=== PATIENT | female | born 1980 ===

== ENCOUNTER 2018-02-28 06:11 | Day surgery (SDC) | payer BC ==
[~2018-02-28 06:11] MED LIST: Buffered Lidocaine 0.9% SYRIN* 5 ML/SYR SYRINGE INTRADERM ONE; Dexamethasone IV* 4 MG/ML 1 ML (4 MG) IV SLOW PU ONE; Famotidine IV* 10 MG/ML 2 ML (20 mg) IV ONE; Scopolamine 1.5 mg* PATCH TRANSDERM ONE
[2018-02-28] MEDS ORDERED: Scopolamine 1.5 mg* PATCH ONE (06:16)
[2018-02-28] MEDS ORDERED: Dexamethasone IV* 4 MG/ML 1 ML (4 MG) ONE (06:16)
[2018-02-28] MEDS ORDERED: Buffered Lidocaine 0.9% SYRIN* 5 ML/SYR SYRINGE ONE (06:16)
[2018-02-28] MEDS ORDERED: ceFAZolin 2 GM PREMIX (*) 2 GM/50 ML BAG IVPB ONE (06:16)
[2018-02-28] MEDS ORDERED: Famotidine IV* 10 MG/ML 2 ML (20 mg) ONE (06:16)
[2018-02-28] MEDS ORDERED: Bupivacaine 0.25% W/EPI* 10 ML SDV ONE (07:02)
[2018-02-28] MEDS ORDERED: Lidocaine 1%* 5 ML VIAL ONE ×2 (07:02→07:03)
[2018-02-28] MEDS ORDERED: Ondansetron INJ* 2 MG/ML VIAL ONE (07:06)
[2018-02-28] MEDS ORDERED: Lidocaine 2% PF * 5 ML VIAL ONE (07:06)
[2018-02-28] MEDS ORDERED: Propofol* 10 MG/ML 20 ML BTL IV PUSH ONE (07:06)
[2018-02-28] MEDS ORDERED: Midazolam* 1 MG/ML 5 ML VIAL (5 MG) ONE (07:07)
[2018-02-28] MEDS ORDERED: Rocuronium* 10 MG/ML VIAL ONE ×2 (07:07→09:59)
[2018-02-28] MEDS ORDERED: fentaNYL* 50 MCG/ML 5 ML VIAL (250 MCG VIAL) ONE (07:07)
[2018-02-28] MEDS ORDERED: Naloxone* 0.4 MG/ML 1 ML VIAL IV PRN (07:21)
[2018-02-28] MEDS ORDERED: oxyCODONE/Acetamin 5/325 MG* TAB PO PRN (07:21)
[2018-02-28] MEDS ORDERED: HYDROcodone/ACETAMIN 5-325 MG* 1 TAB PO PRN (07:21)
[2018-02-28] MEDS ORDERED: DiMENhydriNATE IV* 50 MG/ML VIAL IV PUSH PRN (07:21)
[2018-02-28] MEDS ORDERED: fentaNYL* 50 MCG/ML 2 ML VIAL (100 MCG VIAL) ONE ×4 (09:18→12:56)
[2018-02-28] MEDS ORDERED: EPHEDrine (Pressors)* 50 MG/ML VIAL ONE (09:43)
[2018-02-28] MEDS ORDERED: Neostigmine Methylsulfate* 1 MG/ML 10 ML VIAL (1 mg/ml) ONE (11:21)
[2018-02-28] MEDS ORDERED: Glycopyrrolate IV* 0.2 MG/ML 1 ML VIAL ONE (11:21)
[2018-02-28] MEDS ORDERED: ceFAZolin 1 GM in Dextrose (*) 2 GM/100 ML BAG IVPB ONE (11:27)
[2018-02-28] MEDS: fentaNYL* 50 MCG/ML 2 ML VIAL (100 MCG VIAL) IV PRN ×2 (12:39→12:58)
[2018-02-28] MEDS ORDERED: oxyCODONE/Acetamin 5/325 MG* TAB ONE (12:56)
[2018-02-28 14:38] VITALS: BP 148/97
[2018-03-03] MEDS ORDERED: Scopolamine PATCH Remove* 1 NOTE MISC PATCH OFF ONE (06:00)
== END 2018-02-28 14:46 | disposition home or self-care (01) ==
LOC: OR 06:11
PROVIDERS: ATTEND Plastic Surgery
DX: N62 Hypertrophy of breast (principal); J45.909 Unspecified asthma, uncomplicated; N80.0 Endometriosis of uterus; I10 Essential (primary) hypertension; G93.2 Benign intracranial hypertension; F41.8 Other specified anxiety disorders
CPT/HCPCS: 81025; 88305; A9270-GY; J0690; J1100; J2250; J2405; J2704; J2710; J3010